=== PATIENT | female | born 1955 | race Caucasian/White ===

== ENCOUNTER 2016-08-02 08:05 | Day surgery (SDC) | payer BC, OTHER ==
[~2016-08-02 08:05] MED LIST: Bupivacaine 0.5% 50 ML MDV ONE; Lidocaine 1% with EPINEPHrine 1:100,000 50 ML MDV ONE; Lidocaine 2% Jelly 10 ML Urojet ONE
[2016-08-02] MEDS ORDERED: Lactated Ringers 1,000 ML IV SCH (08:30)
[2016-08-02] MEDS ORDERED: ceFAZolin 2 GM in Premix Bag 1 BAG IV ONE (09:00)
[2016-08-02] MEDS ORDERED: metroNIDAZOLE/Normal Saline 500 MG in Premix Bag 1 BAG IV ONE (09:00)
[2016-08-02] MEDS ORDERED: Propofol 200 MG/20 ML SDV ONE ×2 (09:39→10:15)
[2016-08-02] MEDS ORDERED: fentaNYL 100 MCG/2 ML SDV ONE (09:40)
[2016-08-02] MEDS ORDERED: Midazolam 1 MG/ML 2 ML SDV ONE (09:40)
[2016-08-02 11:44] VITALS: BP 141/91
--- NOTE | 2016-08-03 07:32 | OR ---
DATE OF PROCEDURE: 08/02/2016 PROCEDURE: 1. Esophagogastroduodenoscopy. 2. Hemorrhoidectomy. FINDINGS: 1. Mild inflammation of the duodenum consistent with duodenitis. 2. Inflammation at GE junction consistent with reflux disease. 3. Small hiatal hernia. 4. Small hemorrhoid, external/internal. COMPLICATIONS: None. ERISA ATTORNEY: None. ANESTHESIA: MAC. PREOPERATIVE DIAGNOSIS: Gastroesophageal reflux disease, hiatal hernia, and history of thrombosed hemorrhoid. POSTOPERATIVE DIAGNOSIS: Gastroesophageal reflux disease, hiatal hernia, and history of thrombosed hemorrhoid. RISKS: Risks, benefits, alternatives, and limitations including, but not limited to infection, bleeding, fistula formation, chronic wound formation and perforation were explained to the patient and wished to proceed. This is a patient who is having epigastric pain history of reflux disease and also has a painful hemorrhoid that has been thrombosed prior. PROCEDURE IN DETAIL: The patient was placed in left lateral decubitus position. The EGD scope was introduced and advanced atraumatically to the second part duodenum. In the duodenal bulb, there was inflammation. A photo was taken. There was no evidence of ulceration. This was biopsied for H. pylori and diagnostic evaluation purposes. On retroflex, the patient has a small hiatal hernia. No gastric ulcers. Inflammation of the GE junction consistent with reflux disease. This was biopsied multiple times using cold biopsy forceps. No abnormalities of the esophagus were noted. The patient was then placed in a prone position. The previous hemorrhoid which was identified prior by the patient was anesthetized with lidocaine. This was excised in a bhavya type formation. This was then closed with interrupted layers of chromic suture. More lidocaine and Gelfoam were placed in the rectum. The patient tolerated the procedure well. Velasquez Kenny MD /[id number]
== END 2016-08-02 11:50 | disposition home or self-care (01) ==
LOC: JP.SDS 08:05
PROVIDERS: ATTEND Surgery
DX: K44.9 Diaphragmatic hernia without obstruction or gangrene (principal); K64.4 Residual hemorrhoidal skin tags; K64.8 Other hemorrhoids; K31.89 Other diseases of stomach and duodenum; K21.9 Gastro-esophageal reflux disease without esophagitis; Z88.8 Allergy status to other drugs, medicaments and biological substances
CPT/HCPCS: 43239; 46255; J0690; J2250; J2704; J3010; J7120; 88304; 88305

== ENCOUNTER 2018-07-31 06:33 | Day surgery (SDC) | payer OTHER ==
[2018-07-31] MEDS ORDERED: Sodium Chloride 0.9% 1,000 ML IV SCH (07:15)
[2018-07-31] MEDS ORDERED: fentaNYL 100 MCG/2 ML SDV ONE (07:28)
[2018-07-31] MEDS ORDERED: Midazolam 1 MG/ML 2 ML SDV ONE (07:28)
[2018-07-31] MEDS ORDERED: Propofol 200 MG/20 ML SDV ONE (07:28)
[2018-07-31 09:35] VITALS: BP 111/69
--- NOTE | 2018-08-01 08:07 | OR ---
DATE OF PROCEDURE: 07/31/2018 SURGEON: Velasquez Kenny MD PROCEDURE: Colonoscopy. FINDINGS: Small, approximately 5 mm polyp, completely removed using snare, in sigmoid colon. COMPLICATIONS: None. FOREIGN LANGUAGES PROFESSOR: None. ANESTHESIA: MAC. PREOPERATIVE DIAGNOSIS: Screening colonoscopy. POSTOPERATIVE DIAGNOSIS: Screening colonoscopy. RISKS: Risks, benefits, alternatives, and limitations including, but not limited to infection, bleeding, and perforation were explained to the patient, who wished to proceed. PROCEDURE IN DETAIL: The patient was placed in left lateral decubitus position. Digital rectal exam was performed without abnormality and showed mild external hemorrhoids. The scope was introduced and advanced atraumatically to the ileocecal valve. A photo was taken of this. The scope was brought back through the ascending, transverse, descending colon, and retroflexed. The aforementioned polyp was identified and completely removed using snare. No abnormal bleeding was noted after this. No abnormalities on retroflexion. No old or new blood. No masses. No diverticulosis. No colitis. The patient tolerated the procedure well. Velasquez Kenny MD /[id number]
== END 2018-07-31 09:38 | disposition home or self-care (01) ==
LOC: JP.SDS 06:33
PROVIDERS: ATTEND Surgery
DX: Z12.11 Encounter for screening for malignant neoplasm of colon (principal); K63.5 Polyp of colon; K21.9 Gastro-esophageal reflux disease without esophagitis; E78.00 Pure hypercholesterolemia, unspecified; I12.9 Hypertensive chronic kidney disease with stage 1 through stage 4 chronic kidney disease, or unspecified chronic kidney disease; N18.9 Chronic kidney disease, unspecified; F17.200 Nicotine dependence, unspecified, uncomplicated; Z88.5 Allergy status to narcotic agent; Z88.4 Allergy status to anesthetic agent; Z88.1 Allergy status to other antibiotic agents; Z79.82 Long term (current) use of aspirin; Z79.899 Other long term (current) drug therapy
CPT/HCPCS: 45385; J2250; J2704; J3010; J7030; 88305

== ENCOUNTER 2018-08-05 07:02 | Day surgery (SDC) | payer OTHER ==
[2018-08-05] MEDS ORDERED: Sodium Chloride 0.9% 1,000 ML IV SCH (07:30)
[2018-08-05] MEDS ORDERED: fentaNYL 100 MCG/2 ML SDV ONE (08:06)
[2018-08-05] MEDS ORDERED: Midazolam 1 MG/ML 2 ML SDV ONE (08:06)
[2018-08-05] MEDS ORDERED: Propofol 200 MG/20 ML SDV ONE (08:06)
--- NOTE | 2018-08-05 09:24 | OR ---
DATE OF PROCEDURE: 08/05/2018 PROCEDURE: 1. EGD. 2. Biopsy, duodenum. 3. Gerber pH monitor placed at 34 cm (6 cm proximal to the GE junction). COMPLICATIONS: None. CLOTH GRADER: None. PREOPERATIVE DIAGNOSIS: Epigastric pain. POSTOPERATIVE DIAGNOSIS: Epigastric pain. RISKS: Risks, benefits, alternatives, and limitations including, but not limited to, infection, bleeding, and perforation were explained to the patient, who wished to proceed. PROCEDURE IN DETAIL: The patient was placed in a left lateral decubitus position. The EGD scope was introduced and advanced atraumatically into the second part of the duodenum. Within the duodenal bulb, there was a prominent polypoid-type area. This was noted to be present without any evidence of bleeding. This was biopsied x4. On retroflex, no other gross abnormalities were noted. The GE junction was noted to be 40 cm. The remainder of esophagus was normal. The scope was removed. The Gerber monitor including its carrier were introduced and placed 6 cm proximal using the standard technique of applying suction, deploying, releasing, discontinuing suction and then removing the carrier. The scope was then re-introduced and good placement was noted. The patient tolerated the procedure well. Velasquez eKnny MD /[id number]
[2018-08-05 09:33] VITALS: BP 110/72
== END 2018-08-05 10:05 | disposition home or self-care (01) ==
LOC: JP.SDS 07:02
PROVIDERS: ATTEND Surgery
DX: K31.89 Other diseases of stomach and duodenum (principal); K21.9 Gastro-esophageal reflux disease without esophagitis; I12.9 Hypertensive chronic kidney disease with stage 1 through stage 4 chronic kidney disease, or unspecified chronic kidney disease; N18.9 Chronic kidney disease, unspecified; E78.5 Hyperlipidemia, unspecified; F17.210 Nicotine dependence, cigarettes, uncomplicated; F41.9 Anxiety disorder, unspecified; Z88.5 Allergy status to narcotic agent; Z88.1 Allergy status to other antibiotic agents
CPT/HCPCS: J2250; J2704; J3010; J7030

== ENCOUNTER 2022-12-23 17:01 | Emergency (ER) | payer MEDICARE, OTHER ==
[2022-12-23 17:15] VITALS: PULSE 98
[2022-12-23 17:16] VITALS: BP 131/84
[2022-12-23] MEDS ORDERED: Albuterol/Ipratropium 3.0-0.5 MG/3 ML Neb Soln NEB ONE (17:48)
== END 2022-12-23 18:53 | disposition home or self-care (01) ==
LOC: JP.ED 17:01
DX: J06.9 Acute upper respiratory infection, unspecified (principal); E78.00 Pure hypercholesterolemia, unspecified; I10 Essential (primary) hypertension; K21.9 Gastro-esophageal reflux disease without esophagitis; Z20.822 Contact with and (suspected) exposure to COVID-19; F17.210 Nicotine dependence, cigarettes, uncomplicated; Z88.1 Allergy status to other antibiotic agents; Z88.8 Allergy status to other drugs, medicaments and biological substances; Z79.899 Other long term (current) drug therapy
CPT/HCPCS: 94640; 99285; U0002; J7620

== ENCOUNTER 2023-12-31 07:48 | Day surgery (SDC) | payer MEDICARE, OTHER ==
[~2023-12-31 07:48] MED LIST changes: -Bupivacaine 0.5% 50 ML MDV ONE; -Lidocaine 1% with EPINEPHrine 1:100,000 50 ML MDV ONE; -Lidocaine 2% Jelly 10 ML Urojet ONE; +Midazolam 1 MG/ML 2 ML SDV ONE; +Propofol 200 MG/20 ML SDV ONE; +fentaNYL 50 MCG/ML SDV ONE
[2023-12-31] MEDS: Sodium Chloride 0.9% 1,000 ML IV SCH (08:52)
[2023-12-31] MEDS ORDERED: Propofol 200 MG/20 ML SDV ONE (09:26)
[2023-12-31 10:35] VITALS: BP 107/76; PULSE 67
== END 2023-12-31 10:50 | disposition home or self-care (01) ==
LOC: JP.SDS 07:48
PROVIDERS: ATTEND Surgery
DX: Z12.11 Encounter for screening for malignant neoplasm of colon (principal); D12.4 Benign neoplasm of descending colon; K63.5 Polyp of colon; K22.70 Barrett's esophagus without dysplasia; K44.9 Diaphragmatic hernia without obstruction or gangrene; K57.30 Diverticulosis of large intestine without perforation or abscess without bleeding; K22.89 Other specified disease of esophagus; K64.9 Unspecified hemorrhoids
CPT/HCPCS: 43239; 45385; 88305; J2250; J2704; J3010; J7030; 00813-QZ

== ENCOUNTER 2024-10-18 19:13 | Emergency (ER) | payer MEDICARE, OTHER ==
[2024-10-18 21:15] LABS: BASOPHILS PERCENT AUTO 0.2 % (0.1-1.3); EOSINOPHILS PERCENT AUTO 0.3 % (0.0-5.4); IMMATURE GRAN PERCENT AUTO 0.3 % (0.0-0.7); LYMPHOCYTES ABSOLUTE AUTO 0.88 K/uL (0.8-3.3); LYMPHOCYTES PERCENT AUTO 13.7 % (11.4-47.7); MONOCYTES ABSOLUTE AUTO 0.53 K/uL (0.20-0.90); MONOCYTES PERCENT AUTO 8.3 % (3.3-12.6); NEUTROPHILS ABSOLUTE AUTO 4.95 K/uL (1.0-7.6); NEUTROPHILS PERCENT AUTO 77.2 % (40.0-78.1); PLATELET COUNT,PLT 215 K/uL (130-375); RED BLOOD CELL COUNT 4.02 M/uL (3.77-5.24); WHITE BLOOD CELL COUNT,WBC 6.4 K/uL (3.2-11.0)
[2024-10-18 21:47] LABS: BASOPHILS ABSOLUTE AUTO 0.01 K/uL (0.00-0.10); EOSINOPHILS ABSOLUTE AUTO 0.02 K/uL (0.00-0.40); IMMATURE GRAN ABSOLUTE AUTO 0.02 K/uL (0.00-0.23)
[2024-10-18 22:00] LABS: A/G RATIO 1.0 (1.2-2.2); ALANINE AMINOTRANSFERASE,ALT 24 U/L (12-78); ASPARTATE AMNIOTRANSFERASE,AST 16 U/L (15-37); BILIRUBIN TOTAL 0.2 mg/dL (0.2-1.0); BLOOD UREA NITROGEN,BUN 14 mg/dL (7-18); CARBON DIOXIDE,CO2 31 mmol/L (21-32); CHLORIDE,CL 101 mmol/L (100-108); CREATININE 1.0 mg/dL (0.6-1.0); EST CRCL DRUG DOSING (CG) 47.14 mL/min; ESTIMATED GFR 62 mL/min (>60); GLUCOSE RANDOM 104 mg/dL (74-106); LACTIC ACID 0.8 mmol/L (0.4-2.0); POTASSIUM,K 3.3 mmol/L (3.6-5.2); PROTEIN TOTAL,TP 7.0 g/dL (6.4-8.2); SODIUM,NA 138 mmol/L (140-148)
[2024-10-18 22:18] VITALS: BP 130/76; PULSE 80
[2024-10-18] MEDS: Amoxicillin/Clavulanate K 875-125 MG Tab PO ONE (23:01)
[2024-10-18] MEDS: methylPREDNISolone Sodium Succinate 125 MG/2 ML SDV IM ONE (23:02)
== END 2024-10-18 23:11 | disposition home or self-care (01) ==
LOC: JP.ED 19:13
DX: J18.9 Pneumonia, unspecified organism (principal); E78.00 Pure hypercholesterolemia, unspecified; I10 Essential (primary) hypertension; K21.9 Gastro-esophageal reflux disease without esophagitis; F17.210 Nicotine dependence, cigarettes, uncomplicated; Z91.048 Other nonmedicinal substance allergy status; Z88.5 Allergy status to narcotic agent; Z88.1 Allergy status to other antibiotic agents; Z88.4 Allergy status to anesthetic agent; Z88.8 Allergy status to other drugs, medicaments and biological substances; Z79.899 Other long term (current) drug therapy
CPT/HCPCS: 36415; 71045; 80053; 83605; 84484; 85025; 86140; 94640; 96372; 99285; A9270; J2919

== ENCOUNTER 2024-10-26 14:15 | Inpatient (IN) | payer MEDICARE, OTHER ==
[2024-10-26] MEDS ORDERED: Sodium Chloride 0.9% 10 ML Syringe FLUSH PRN (14:48)
[2024-10-26 15:08] LABS: BASOPHILS ABSOLUTE AUTO 0.05 K/uL (0.00-0.10); BASOPHILS PERCENT AUTO 0.3 % (0.1-1.3); EOSINOPHILS ABSOLUTE AUTO 0.04 K/uL (0.00-0.40); EOSINOPHILS PERCENT AUTO 0.2 % (0.0-5.4); IMMATURE GRAN ABSOLUTE AUTO 0.40 K/uL (0.00-0.23); IMMATURE GRAN PERCENT AUTO 2.4 % (0.0-0.7); LYMPHOCYTES ABSOLUTE AUTO 3.32 K/uL (0.8-3.3); LYMPHOCYTES PERCENT AUTO 19.7 % (11.4-47.7); MONOCYTES ABSOLUTE AUTO 1.80 K/uL (0.20-0.90); MONOCYTES PERCENT AUTO 10.7 % (3.3-12.6); NEUTROPHILS ABSOLUTE AUTO 11.21 K/uL (1.0-7.6); NEUTROPHILS PERCENT AUTO 66.7 % (40.0-78.1); PLATELET COUNT,PLT 366 K/uL (130-375); RED BLOOD CELL COUNT 4.96 M/uL (3.77-5.24); WHITE BLOOD CELL COUNT,WBC 16.8 K/uL (3.2-11.0)
[2024-10-26 15:33] LABS: LACTIC ACID 1.9 mmol/L (0.4-2.0)
[2024-10-26 15:37] LABS: A/G RATIO 0.9 (1.2-2.2); ALANINE AMINOTRANSFERASE,ALT 25 U/L (12-78); ASPARTATE AMNIOTRANSFERASE,AST 15 U/L (15-37); BILIRUBIN TOTAL 0.8 mg/dL (0.2-1.0); BLOOD UREA NITROGEN,BUN 24 mg/dL (7-18); CARBON DIOXIDE,CO2 31 mmol/L (21-32); CHLORIDE,CL 95 mmol/L (100-108); CREATININE 1.3 mg/dL (0.6-1.0); EST CRCL DRUG DOSING (CG) 36.26 mL/min; ESTIMATED GFR 45 mL/min (>60); GLUCOSE RANDOM 127 mg/dL (74-106); POTASSIUM,K 3.0 mmol/L (3.6-5.2); PROTEIN TOTAL,TP 7.5 g/dL (6.4-8.2); SODIUM,NA 135 mmol/L (140-148)
[2024-10-26] MEDS: Potassium Chloride 20 MEQ Tab.ER PO ONE (16:06)
[2024-10-26] MEDS: Venlafaxine 75 MG Cap.ER PO SCH (20:23)
[2024-10-27 05:43] LABS: BASOPHILS ABSOLUTE AUTO 0.04 K/uL (0.00-0.10); BASOPHILS PERCENT AUTO 0.3 % (0.1-1.3); EOSINOPHILS ABSOLUTE AUTO 0.04 K/uL (0.00-0.40); EOSINOPHILS PERCENT AUTO 0.3 % (0.0-5.4); IMMATURE GRAN ABSOLUTE AUTO 0.20 K/uL (0.00-0.23); IMMATURE GRAN PERCENT AUTO 1.7 % (0.0-0.7); LYMPHOCYTES ABSOLUTE AUTO 2.36 K/uL (0.8-3.3); LYMPHOCYTES PERCENT AUTO 20.0 % (11.4-47.7); MONOCYTES ABSOLUTE AUTO 1.39 K/uL (0.20-0.90); MONOCYTES PERCENT AUTO 11.8 % (3.3-12.6); NEUTROPHILS ABSOLUTE AUTO 7.76 K/uL (1.0-7.6); NEUTROPHILS PERCENT AUTO 65.9 % (40.0-78.1); PLATELET COUNT,PLT 256 K/uL (130-375); RED BLOOD CELL COUNT 4.26 M/uL (3.77-5.24); WHITE BLOOD CELL COUNT,WBC 11.8 K/uL (3.2-11.0)
[2024-10-27 06:04] LABS: A/G RATIO 0.7 (1.2-2.2); ALANINE AMINOTRANSFERASE,ALT 17 U/L (12-78); ASPARTATE AMNIOTRANSFERASE,AST 12 U/L (15-37); BILIRUBIN TOTAL 0.5 mg/dL (0.2-1.0); BLOOD UREA NITROGEN,BUN 17 mg/dL (7-18); CARBON DIOXIDE,CO2 28 mmol/L (21-32); CHLORIDE,CL 103 mmol/L (100-108); CREATININE 1.0 mg/dL (0.6-1.0); EST CRCL DRUG DOSING (CG) 47.14 mL/min; ESTIMATED GFR 62 mL/min (>60); GLUCOSE RANDOM 106 mg/dL (74-106); POTASSIUM,K 3.8 mmol/L (3.6-5.2); PROTEIN TOTAL,TP 6.1 g/dL (6.4-8.2); SODIUM,NA 138 mmol/L (140-148)
[2024-10-27] MEDS ORDERED: Venlafaxine 75 MG Cap.ER PO SCH (09:00)
[2024-10-28 05:50] LABS: BASOPHILS ABSOLUTE AUTO 0.03 K/uL (0.00-0.10); BASOPHILS PERCENT AUTO 0.3 % (0.1-1.3); EOSINOPHILS ABSOLUTE AUTO 0.04 K/uL (0.00-0.40); EOSINOPHILS PERCENT AUTO 0.4 % (0.0-5.4); IMMATURE GRAN ABSOLUTE AUTO 0.12 K/uL (0.00-0.23); IMMATURE GRAN PERCENT AUTO 1.1 % (0.0-0.7); LYMPHOCYTES ABSOLUTE AUTO 2.08 K/uL (0.8-3.3); LYMPHOCYTES PERCENT AUTO 19.4 % (11.4-47.7); MONOCYTES ABSOLUTE AUTO 1.30 K/uL (0.20-0.90); MONOCYTES PERCENT AUTO 12.1 % (3.3-12.6); NEUTROPHILS ABSOLUTE AUTO 7.17 K/uL (1.0-7.6); NEUTROPHILS PERCENT AUTO 66.7 % (40.0-78.1); PLATELET COUNT,PLT 229 K/uL (130-375); RED BLOOD CELL COUNT 3.89 M/uL (3.77-5.24); WHITE BLOOD CELL COUNT,WBC 10.7 K/uL (3.2-11.0)
[2024-10-28 06:10] LABS: A/G RATIO 0.7 (1.2-2.2); ALANINE AMINOTRANSFERASE,ALT 18 U/L (12-78); ASPARTATE AMNIOTRANSFERASE,AST 15 U/L (15-37); BILIRUBIN TOTAL 0.3 mg/dL (0.2-1.0); BLOOD UREA NITROGEN,BUN 11 mg/dL (7-18); CARBON DIOXIDE,CO2 27 mmol/L (21-32); CHLORIDE,CL 104 mmol/L (100-108); CREATININE 0.8 mg/dL (0.6-1.0); EST CRCL DRUG DOSING (CG) 58.93 mL/min; ESTIMATED GFR 81 mL/min (>60); GLUCOSE RANDOM 101 mg/dL (74-106); POTASSIUM,K 3.7 mmol/L (3.6-5.2); PROTEIN TOTAL,TP 6.1 g/dL (6.4-8.2); SODIUM,NA 137 mmol/L (140-148)
[2024-10-28 18:56] LABS: MRSA DETECTION BY PCR Not Detected
[2024-10-29 06:21] LABS: BASOPHILS PERCENT AUTO 0.2 % (0.1-1.3); EOSINOPHILS ABSOLUTE AUTO 0.04 K/uL (0.00-0.40); EOSINOPHILS PERCENT AUTO 0.4 % (0.0-5.4); IMMATURE GRAN ABSOLUTE AUTO 0.23 K/uL (0.00-0.23); IMMATURE GRAN PERCENT AUTO 2.1 % (0.0-0.7); LYMPHOCYTES ABSOLUTE AUTO 1.68 K/uL (0.8-3.3); LYMPHOCYTES PERCENT AUTO 15.3 % (11.4-47.7); MONOCYTES ABSOLUTE AUTO 1.07 K/uL (0.20-0.90); MONOCYTES PERCENT AUTO 9.8 % (3.3-12.6); NEUTROPHILS ABSOLUTE AUTO 7.92 K/uL (1.0-7.6); NEUTROPHILS PERCENT AUTO 72.2 % (40.0-78.1); PLATELET COUNT,PLT 215 K/uL (130-375); RED BLOOD CELL COUNT 3.77 M/uL (3.77-5.24); WHITE BLOOD CELL COUNT,WBC 11.0 K/uL (3.2-11.0)
[2024-10-29 06:34] LABS: BASOPHILS ABSOLUTE AUTO 0.02 K/uL (0.00-0.10)
[2024-10-29 06:52] LABS: A/G RATIO 0.7 (1.2-2.2); ALANINE AMINOTRANSFERASE,ALT 34 U/L (12-78); ASPARTATE AMNIOTRANSFERASE,AST 29 U/L (15-37); BILIRUBIN TOTAL 0.4 mg/dL (0.2-1.0); BLOOD UREA NITROGEN,BUN 9 mg/dL (7-18); CARBON DIOXIDE,CO2 25 mmol/L (21-32); CHLORIDE,CL 103 mmol/L (100-108); CREATININE 0.8 mg/dL (0.6-1.0); EST CRCL DRUG DOSING (CG) 58.93 mL/min; ESTIMATED GFR 81 mL/min (>60); GLUCOSE RANDOM 106 mg/dL (74-106); POTASSIUM,K 3.6 mmol/L (3.6-5.2); PROTEIN TOTAL,TP 6.2 g/dL (6.4-8.2); SODIUM,NA 138 mmol/L (140-148)
[2024-10-29 06:54] LABS: VANCOMYCIN RANDOM 22.6 ug/mL (0.0-50.0)
[2024-10-29] MEDS: Iopamidol 612 MG/ML 100 ML Bottle IV ONE (17:00)
[2024-10-29] MEDS: Sodium Chloride 0.9% 10 ML Syringe FLUSH ONE (17:00)
[2024-10-29] MEDS: Amoxicillin/Clavulanate K 875-125 MG Tab PO SCH (20:35)
[2024-10-30 05:21] VITALS: BP 128/68
[2024-10-30 05:56] LABS: BASOPHILS PERCENT AUTO 0.2 % (0.1-1.3); EOSINOPHILS ABSOLUTE AUTO 0.05 K/uL (0.00-0.40); EOSINOPHILS PERCENT AUTO 0.5 % (0.0-5.4); IMMATURE GRAN ABSOLUTE AUTO 0.08 K/uL (0.00-0.23); IMMATURE GRAN PERCENT AUTO 0.8 % (0.0-0.7); LYMPHOCYTES ABSOLUTE AUTO 1.69 K/uL (0.8-3.3); LYMPHOCYTES PERCENT AUTO 16.1 % (11.4-47.7); MONOCYTES ABSOLUTE AUTO 0.89 K/uL (0.20-0.90); MONOCYTES PERCENT AUTO 8.5 % (3.3-12.6); NEUTROPHILS ABSOLUTE AUTO 7.75 K/uL (1.0-7.6); NEUTROPHILS PERCENT AUTO 73.9 % (40.0-78.1); PLATELET COUNT,PLT 231 K/uL (130-375); RED BLOOD CELL COUNT 3.76 M/uL (3.77-5.24); WHITE BLOOD CELL COUNT,WBC 10.5 K/uL (3.2-11.0)
[2024-10-30 06:00] LABS: BASOPHILS ABSOLUTE AUTO 0.02 K/uL (0.00-0.10)
[2024-10-30 06:29] LABS: A/G RATIO 0.6 (1.2-2.2); ALANINE AMINOTRANSFERASE,ALT 54 U/L (12-78); ASPARTATE AMNIOTRANSFERASE,AST 42 U/L (15-37); BILIRUBIN TOTAL 0.4 mg/dL (0.2-1.0); BLOOD UREA NITROGEN,BUN 7 mg/dL (7-18); CARBON DIOXIDE,CO2 28 mmol/L (21-32); CHLORIDE,CL 103 mmol/L (100-108); CREATININE 0.8 mg/dL (0.6-1.0); EST CRCL DRUG DOSING (CG) 58.93 mL/min; ESTIMATED GFR 81 mL/min (>60); GLUCOSE RANDOM 115 mg/dL (74-106); POTASSIUM,K 3.7 mmol/L (3.6-5.2); PROTEIN TOTAL,TP 6.3 g/dL (6.4-8.2); SODIUM,NA 139 mmol/L (140-148)
[2024-10-30 07:18] VITALS: PULSE 98
== END 2024-10-30 11:15 | disposition home or self-care (01) | DRG 194 ==
LOC: JP.ED 14:15 → JP.MS 16:27
PROVIDERS: ADMIT Student in an Organized Health Care Education/Training Program; ATTEND Student in an Organized Health Care Education/Training Program
DX: J18.9 Pneumonia, unspecified organism (principal); J44.0 Chronic obstructive pulmonary disease with (acute) lower respiratory infection; N17.9 Acute kidney failure, unspecified; H54.7 Unspecified visual loss; I10 Essential (primary) hypertension; E78.00 Pure hypercholesterolemia, unspecified; K21.9 Gastro-esophageal reflux disease without esophagitis; F41.9 Anxiety disorder, unspecified; F32.A Depression, unspecified; E87.6 Hypokalemia; J43.9 Emphysema, unspecified; R91.1 Solitary pulmonary nodule; F17.200 Nicotine dependence, unspecified, uncomplicated; Z88.5 Allergy status to narcotic agent; Z87.81 Personal history of (healed) traumatic fracture; Z88.8 Allergy status to other drugs, medicaments and biological substances; Z88.1 Allergy status to other antibiotic agents; Z79.899 Other long term (current) drug therapy; Z98.890 Other specified postprocedural states; Z90.89 Acquired absence of other organs; Z90.49 Acquired absence of other specified parts of digestive tract; Z98.51 Tubal ligation status
CPT/HCPCS: 36415; 71250 ×2; 80053; 83605; 85025; 85379; 86140; 87040 ×2; 96365; 99285; A9270; J3480; J7030; 71045; 71045-26; 71260; 71260-26; 74177; 74177-26; 80202; 87426-QW; 87641; 94640; 94667; 94668; 99222; 99231; 99232; 99238; J0696; J1650; J3373; J3374; J7050; Q9967

== ENCOUNTER 2025-01-11 07:31 | Emergency (ER) | payer MEDICARE, OTHER ==
[2025-01-11] MEDS: methylPREDNISolone Sodium Succinate 40 MG/1 ML SDV IVPUSH ONE (08:34)
[2025-01-11 08:36] LABS: BASE EXCESS VENOUS 1.6 mm/L; BICARBONATE,VENOUS 24.0 mmol/L; O2 SATURATION VENOUS 82.5; OXYHEMOGLOBIN 80.1 %; PCO2 VENOUS 32.4 mm/Hg; PH,VENOUS 7.483 (7.350-7.450); PO2 VENOUS 47.2 mm/Hg; TOTAL HEMOGLOBIN 13.3 g/dL (12.0-16.0)
[2025-01-11 08:38] LABS: BASOPHILS PERCENT AUTO 0.1 % (0.1-1.3); EOSINOPHILS PERCENT AUTO 0.1 % (0.0-5.4); IMMATURE GRAN ABSOLUTE AUTO 0.08 K/uL (0.00-0.23); IMMATURE GRAN PERCENT AUTO 0.6 % (0.0-0.7); LYMPHOCYTES ABSOLUTE AUTO 1.36 K/uL (0.8-3.3); LYMPHOCYTES PERCENT AUTO 9.5 % (11.4-47.7); MONOCYTES ABSOLUTE AUTO 1.22 K/uL (0.20-0.90); MONOCYTES PERCENT AUTO 8.6 % (3.3-12.6); NEUTROPHILS ABSOLUTE AUTO 11.56 K/uL (1.0-7.6); NEUTROPHILS PERCENT AUTO 81.1 % (40.0-78.1); PLATELET COUNT,PLT 352 K/uL (130-375); RED BLOOD CELL COUNT 4.21 M/uL (3.77-5.24); WHITE BLOOD CELL COUNT,WBC 14.3 K/uL (3.2-11.0)
[2025-01-11 08:39] LABS: BASOPHILS ABSOLUTE AUTO 0.02 K/uL (0.00-0.10); EOSINOPHILS ABSOLUTE AUTO 0.02 K/uL (0.00-0.40)
[2025-01-11 08:47] LABS: CORONAVIRUS COVID-19 NAA NEGATIVE (NEGATIVE); INFLUENZA A NAA NEGATIVE (NEGATIVE); INFLUENZA B NAA NEGATIVE (NEGATIVE); RESPIRATORY SYNCYTIAL VIR NAA NEGATIVE (NEGATIVE)
[2025-01-11 09:10] LABS: A/G RATIO 0.7 (1.2-2.2); ALANINE AMINOTRANSFERASE,ALT 21 U/L (12-78); ASPARTATE AMNIOTRANSFERASE,AST 20 U/L (15-37); BILIRUBIN TOTAL 0.5 mg/dL (0.2-1.0); BLOOD UREA NITROGEN,BUN 11 mg/dL (7-18); CARBON DIOXIDE,CO2 26 mmol/L (21-32); CHLORIDE,CL 99 mmol/L (100-108); CREATININE 0.9 mg/dL (0.6-1.0); ESTIMATED GFR 70 mL/min (>60); GLUCOSE RANDOM 123 mg/dL (74-106); POTASSIUM,K 3.2 mmol/L (3.6-5.2); PRO B-TYPE NATRIUR PEPT,BNPPRO 102 pg/mL (5-125); PROTEIN TOTAL,TP 7.4 g/dL (6.4-8.2); SODIUM,NA 135 mmol/L (140-148)
[2025-01-11] MEDS: Iopamidol 612 MG/ML 100 ML Bottle IV PRN (09:50)
[2025-01-11] MEDS: Sodium Chloride 0.9% 10 ML Syringe FLUSH PRN (09:50)
[2025-01-11] MEDS: Levofloxacin/Dextrose 5%-Water 500 MG in Premix Bag 1 BAG IV ONE (09:58)
[2025-01-11 10:49] VITALS: BP 139/85; PULSE 89
== END 2025-01-11 11:20 | disposition home or self-care (01) ==
LOC: JP.ED 07:31
DX: J44.0 Chronic obstructive pulmonary disease with (acute) lower respiratory infection (principal); J18.9 Pneumonia, unspecified organism; I12.9 Hypertensive chronic kidney disease with stage 1 through stage 4 chronic kidney disease, or unspecified chronic kidney disease; E78.00 Pure hypercholesterolemia, unspecified; J44.9 Chronic obstructive pulmonary disease, unspecified; N18.30 Chronic kidney disease, stage 3 unspecified; K21.9 Gastro-esophageal reflux disease without esophagitis; Z79.899 Other long term (current) drug therapy; Z88.5 Allergy status to narcotic agent; Z88.1 Allergy status to other antibiotic agents; Z88.8 Allergy status to other drugs, medicaments and biological substances; Z90.49 Acquired absence of other specified parts of digestive tract
CPT/HCPCS: 36415; 71045; 71275; 80053; 82803; 83605; 83735; 83880; 85025; 85379; 86140; 87040; 87637; 94640; 96361; 96365; 96375; 99285; A9270; J1956; J7030; Q9967; J2919